=== PATIENT | male | born 1960 | race Caucasian/White ===

== ENCOUNTER 2025-03-13 10:08 | Day surgery (SDC) | payer SELFPAY ==
[2025-03-13] MEDS: Lactated Ringers 1,000 ML IV SCH (10:31)
[2025-03-13] MEDS ORDERED: Ketamine 200 MG/20 ML MDV ONE (10:40)
[2025-03-13] MEDS ORDERED: Propofol 200 MG/20 ML SDV ONE (10:40)
[2025-03-13] MEDS ORDERED: fentaNYL 50 MCG/ML SDV ONE ×2 (10:40)
[2025-03-13] MEDS ORDERED: Flumazenil 0.1 MG/ML 5 ML MDV ONE (10:40)
[2025-03-13] MEDS ORDERED: Midazolam 1 MG/ML 2 ML SDV ONE (10:40)
== END 2025-03-13 11:53 | disposition home or self-care (01) ==
LOC: CC.SDS 10:08
PROVIDERS: ATTEND Family Medicine
DX: Z12.11 Encounter for screening for malignant neoplasm of colon (principal); D12.5 Benign neoplasm of sigmoid colon; K57.30 Diverticulosis of large intestine without perforation or abscess without bleeding; Z86.0100 Personal history of colon polyps, unspecified; K21.9 Gastro-esophageal reflux disease without esophagitis; F41.9 Anxiety disorder, unspecified; N40.0 Benign prostatic hyperplasia without lower urinary tract symptoms; Z79.899 Other long term (current) drug therapy
CPT/HCPCS: 00811; J2250; J2704; J3010; J3490; J7120